=== PATIENT | female | born 1995 | race Caucasian/White ===

== ENCOUNTER → 2020-10-03 | Outpatient (CLI) | payer OTHER | LOC: RAD 13:07 | DX: M79.622 Pain in left upper arm (principal) | CPT/HCPCS: 73060 ==

== ENCOUNTER 2021-04-24 17:03 | Emergency (ER) | payer SELFPAY ==
[2021-04-24 19:32] LABS: HEMOGLOBIN 13.9 gm/dl (12.3-15.3); RED BLOOD COUNT 5.05 M/UL (4.00-5.10); WHITE BLOOD COUNT 10.7 K/UL (4.5-11.0)
[2021-04-24 20:01] LABS: BUN/CREATININE RATIO 10 (0-10)
[2021-04-24] MEDS ORDERED: BUSPIRONE HCL7.5 MG PO (21:00)
== END 2021-04-24 21:11 | disposition home or self-care (01) ==
LOC: ER1 17:03
PROVIDERS: Family Medicine
DX: F41.9 Anxiety disorder, unspecified (principal)
CPT/HCPCS: 80053; 82550; 82553; 83874; 84484; 84703; 85025; 93005; 99283